=== PATIENT | male | born 1960 | race Two or more races ===

== ENCOUNTER → 2017-01-18 | Outpatient (CLI) | payer BC ==
[~2017-01-18] MED LIST: MULT1TAB60 PO; OMEG1CAP26 PO; RED600TA PO
== END ==
LOC: STAR 15:53
PROVIDERS: ATTEND Orthopaedic Surgery
DX: Z02.9 Encounter for administrative examinations, unspecified (principal)

== ENCOUNTER 2017-01-26 10:46 | Day surgery (SDC) | payer BC ==
[~2017-01-26] VITALS: Ht 182.9 cm; Wt 98.8 kg
[~2017-01-26 10:46] MED LIST changes: +BUPIVACAINE/PF 0.25% ONE; +EPINEPHRINE 1 MG/ML, 1ML ONE
[2017-01-26] MEDS ORDERED: LACTATED RINGERS 1,000 ML IV SCH (11:05)
[2017-01-26] MEDS ORDERED: MIDAZOLAM 1 MG/ML, 2ML ONE (11:10)
[2017-01-26] MEDS ORDERED: FENTANYL PF 100 MCG/2ML ONE (11:10)
[2017-01-26 11:27] VITALS: BP 129/79
[2017-01-26] MEDS ORDERED: ONDANSETRON 2MG/ML, 2ML ONE (11:47)
[2017-01-26] MEDS ORDERED: DEXAMETHASONE 4 MG/ML, 1ML ONE (11:47)
[2017-01-26] MEDS ORDERED: KETOROLAC 30 MG/1 ML ONE (11:47)
[2017-01-26] MEDS ORDERED: CEFAZOLIN 1,000 MG ONE (11:47)
[2017-01-26] MEDS ORDERED: PROPOFOL 10 MG/ML, 50ML ONE (11:47)
[2017-01-26] MEDS ORDERED: PROMETHAZINE 25 MG/ML, 1ML IV PRN (12:30)
[2017-01-26] MEDS ORDERED: HYDROmorphone 1 MG/ML, 1ML IV PRN (12:30)
[2017-01-26] MEDS ORDERED: FENTANYL PF 100 MCG/2ML IV PRN (12:30)
[2017-01-26] MEDS ORDERED: ACETAMINOPHEN 325 MG TABLET PO PRN (12:30)
[2017-01-26] MEDS ORDERED: OXYcodone 5 MG/5 ML ORAL.SOL UDC PO PRN (12:30)
[2017-01-26] MEDS ORDERED: OXYcodone 5 MG/5 ML ORAL.SOL UDC ONE (12:47)
== END 2017-01-26 14:00 | disposition home or self-care (01) ==
LOC: OUT 10:46
PROVIDERS: ATTEND Orthopaedic Surgery
DX: S83.242A Other tear of medial meniscus, current injury, left knee, initial encounter (principal); S83.282A Other tear of lateral meniscus, current injury, left knee, initial encounter; M94.262 Chondromalacia, left knee; X58.XXXA Exposure to other specified factors, initial encounter; Y93.89 Activity, other specified; Y92.89 Other specified places as the place of occurrence of the external cause; Y99.8 Other external cause status
CPT/HCPCS: 29880; J0690; J1100; J1885; J2250; J2405; J2704; J3010; J7120; J0171; J3490